=== PATIENT | female | born 1995 | race American Indian/Alaskan Native ===

== ENCOUNTER 2019-11-05 02:20 | Emergency (ER) | payer MEDICAID ==
[2019-11-05 02:43] VITALS: BP 171/98
--- NOTE | 2019-11-05 02:55 | Emergency Department Report ---
Chief Complaint: Dental/Oral Stated Complaint: BROKEN WISDOM TOOTH Time Seen by Provider: 11/05/19 02:48 - HPI History of Present Illness: Patient is a 24-year-old female presents emergency room with complaints of a broken wisdom tooth that occurred at 8 PM tonight. She states that she saw a dentist last month and needs to have root canal and tooth extraction. She denies any fever, vomiting, facial swelling. she denies any known allergies. vss on exam: The right lower wisdom tooth has small piece missing, there is no induration, erythema, edema of the gumline, there is no facial swelling, patient has poor dentition, she has missing teeth with remanence left over in other places, uvula is midline, no uvular edema or deviation, no trismus, no tongue elevation, no muffled voice, tolerating secretions Patient presents with cracked tooth and dental caries No signs of dental abscess, facial cellulitis, dental infection Discussed supportive care and symptomatic treatment with patient Discussed the importance of dental follow-up with patient Patient given multiple dental resources and a handout with community dental resources Discussed strict return precautions with patient Medical screening examination performed and there is no threat to life or limb at this time - Exam Vital Signs: Vital Signs 11/05/19 02:41 Temperature 99.0 F Pulse Rate 94 H Respiratory 18 Rate Blood Pressure 171/98 [Right] O2 Sat by Pulse 96 Oximetry MSE screening note: Focused history and physical exam performed. ED Disposition for MSE Clinical Impression: Cracked tooth, Dental caries Disposition: Z- MED SCREENING EXAM-LEFT Is pt being admited?: No Does the pt Need Aspirin: No Condition: Stable Instructions: Dental Caries (ED) Additional Instructions: May alternate Tylenol 650 mg then ibuprofen 600 mg every 6-8 hours as needed for discomfort. May gargle with warm salt water. Follow-up with a dentist. It is very important that you follow-up. Return to emergency room for any new or worsening symptoms. Referrals: [facility] [Outside] - 2-3 Days [facility] [Outside] - 2-3 Days Time of Disposition: 02:54 Print Language: UKRAINIAN
== END 2019-11-05 03:07 | disposition left against medical advice (07) ==
LOC: ED 02:20
DX: K03.81 Cracked tooth (principal); K02.9 Dental caries, unspecified; Z53.21 Procedure and treatment not carried out due to patient leaving prior to being seen by health care provider